=== PATIENT | female | born 1995 | race Caucasian/White ===

== ENCOUNTER 2018-04-21 22:04 | Emergency (ER) | payer SELFPAY ==
[~2018-04-21] VITALS: Ht 162.6 cm; Wt 63.5 kg
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
[2018-04-21 22:34] LABS: BASO # 0.1 x10^3/uL (0.0-0.2); BASO % 1 % (0-3); EOS # 0.3 x10^3/uL (0.0-0.7); EOS % 3 % (0-3); HEMATOCRIT 41.6 % (36.0-47.0); HEMOGLOBIN 14.2 g/dL (12.0-15.5); LYMPH # 2.2 x10^3/uL (1.0-4.8); LYMPH % 24 % (24-48); MEAN CORPUSCULAR HEMOGLOBIN 30 pg (25-35); MEAN CORPUSCULAR HGB CONC 34 g/dL (31-37); MEAN CORPUSCULAR VOLUME 87 fL (79-100); MONO # 0.4 x10^3/uL (0.0-1.1); MONO % 4 % (0-9); NEUT # 6.1 x10^3uL (1.8-7.7); NEUT % 67 % (31-73); PLATELET COUNT 280 x10^3/uL (140-400); RED BLOOD COUNT 4.79 x10^6/uL (3.50-5.40); WHITE BLOOD COUNT 9.1 x10^3/uL (4.0-11.0)
[2018-04-21] MEDS: NEOMY/BACITR/POLYMYXIN OINT PACKET. TP ONE (22:35)
[2018-04-21] MEDS: fentaNYL PF VIAL 100 MCG/2 ML VIAL IV ONE ×2 (22:35→23:25)
[2018-04-21] MEDS: IV NORMAL SALINE 1000ML BAG 1,000 ML IV ONE (22:36)
[2018-04-21 22:42] LABS: CALCIUM 9.6 mg/dL (8.5-10.1); POTASSIUM 3.3 mmol/L (3.5-5.1)
[2018-04-21 22:44] LABS: PROTHROMBIN TIME PATIENT 13.1 SEC (11.7-14.0)
[2018-04-21 22:49] LABS: ALBUMIN 3.6 g/dL (3.4-5.0); ALBUMIN/GLOBULIN RATIO 0.9 (1.0-1.7); MAGNESIUM 1.7 mg/dL (1.8-2.4); TOTAL BILIRUBIN 0.5 mg/dL (0.2-1.0); TOTAL PROTEIN 7.7 g/dL (6.4-8.2)
[2018-04-21] MEDS ORDERED: IOHEXOL 300 MG/ML 100ML VIAL. ONE (23:12)
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
[2018-04-21] MEDS ORDERED: CONTRAST GIVEN. MC PRN (23:45)
[2018-04-21] MEDS ORDERED: IOHEXOL 300 MG/ML 100ML VIAL. IV ONE (23:45)
[2018-04-21] MEDS ORDERED: CEPH-264 PO (23:45)
[2018-04-21] MEDS ORDERED: MUPI15CR TP (23:45)
[2018-04-21] MEDS ORDERED: HYDR-971 PO (23:52)
[2018-04-21] MEDS ORDERED: IBUP200T44 PO (23:52)
[2018-04-21 23:55] VITALS: BP 144/79
== END 2018-04-22 00:13 | disposition home or self-care (01) ==
LOC: ER 22:04 → EEVIPCON 22:04 → ER 04-22 00:13
DX: S81.801A Unspecified open wound, right lower leg, initial encounter (principal); F15.10 Other stimulant abuse, uncomplicated; Z91.040 Latex allergy status; W34.09XA Accidental discharge from other specified firearms, initial encounter; Y93.89 Activity, other specified; Y92.89 Other specified places as the place of occurrence of the external cause; Y99.8 Other external cause status
CPT/HCPCS: 36415; 73701; 80053; 83735; 85025; 85610; 85730; 96365; 96366; 96375; 99285; G0480; J0690; J3010; J7030